=== PATIENT | male | born 1960 | race Caucasian/White ===

== ENCOUNTER 2023-11-16 22:11 | Emergency (ER) | payer SELFPAY ==
[~2023-11-16] VITALS: Ht 165.1 cm; Wt 50.0 kg
[~2023-11-16 22:11] MED LIST: FLEXERIL PO; NAPROSYN500 MG PO
[2023-11-16 22:30] VITALS: BP 111/82
[2023-11-16 22:39] VITALS: BP 109/72
[2023-11-16 23:00] VITALS: BP 108/78
[2023-11-16 23:48] LABS: BASO% 0.9 % (0-3); EOS% 2.6 % (0-8); HEMATOCRIT 41.1 % (39.0-50.0); HEMOGLOBIN 13.8 g/dl (14.0-18.0); IMMATURE GRANULOCYTES 0.5 % (0.0-5.0); LYMPH% 25.8 % (15-41); MEAN CELL VOLUME 116.8 fL CALC (80.0-100.0); MEAN CORPUSCULAR HGB 39.2 pG CALC (26.0-32.0); MEAN CORPUSCULAR HGB CONC 33.6 g/dL CAL (32.0-36.0); MONO% 14.9 % (2-13); NEUT# 2.38 thou/uL (1.82-7.42); NEUT% 55.3 % (42-76); RED BLOOD COUNT 3.52 mill/uL (4.70-6.10); RED CELL DISTRI WIDTH 13.5 % (11.5-15.5)
[2023-11-17 00:01] VITALS: BP 117/88
[2023-11-17 00:03] LABS: ALBUMIN 3.3 g/dL (3.2-5.0); ALKALINE PHOSPHATASE 136 u/l (38-126); ANION GAP 11 (6-22 (CALC)); BILIRUBIN, TOTAL 0.4 mg/dL (0.2-1.3); BUN 13 mg/dL (8-23); BUN/CREATININE RATIO 16 (12-20 (CALC)); CARBON DIOXIDE 31 mmol/l (22-30); CHLORIDE 103 mmol/l (95-108); CREATININE 0.8 mg/dL (0.7-1.3); ETHYL ALCOHOL 235 mg/dl (0-30); GFR FOR AFR.AMER. > 60 ML/MIN (>=60 (CALC)); GFR OTHER RACES > 60 ML/MIN (>=60 (CALC)); POTASSIUM 3.5 mmol/l (3.5-5.1); SGOT/AST 96 u/l (19-48); SODIUM 141 mmol/l (137-146); TOTAL PROTEIN 5.9 g/dL (6.3-8.2)
[2023-11-17 06:46] VITALS: BP 125/78
== END 2023-11-17 07:01 | disposition home or self-care (01) | DRG 897 ==
LOC: ED 22:11
PROVIDERS: Emergency Medicine
DX: F10.121 Alcohol abuse with intoxication delirium (principal); C14.0 Malignant neoplasm of pharynx, unspecified; F17.200 Nicotine dependence, unspecified, uncomplicated; Y90.7 Blood alcohol level of 200-239 mg/100 ml